=== PATIENT | female | born 1940 | race Caucasian/White ===

== ENCOUNTER 2016-06-20 08:56 | Observation (INO) | payer MEDICARE, BC ==
[~2016-06-20] VITALS: Ht 157.5 cm; Wt 96.3 kg
[~2016-06-20 08:56] MED LIST: 00186-0370-20 IH; ALEVE220 MG PO; ANTIVERT 25MG25 MG PO; APRESOLINE50 MG PO; ASPIRIN E.C. 8181 MG PO; BACTRIM DS 8001 TAB PO; BENTYL 10MG10 MG/CAP PO; CALCIFEROL50000 IU PO; CIPRO 500MG TA500 MG PO; CLARITIN 1010 MG/TAB PO; D3-55000 IU PO; DIAZEPAM5 MG PO; DIFLUCAN150 MG PO; EPA-CON500 MG PO; ESTRATEST H.S.1 TAB PO; ESTROGEN; FLAGYL500 MG PO; HYDRALAZINE50 MG PO; LEVAQUIN 5500 MG/TA1 PO; NEURONTIN100 MG/CAP PO; NEXIUM 40MG40 MG PO; NEXIUM PO; NORCO 325 MG-51 TAB PO; NORCO 325 MG-7.1 TAB PO; P MEDS; PHENERGAN 25 TA25 MG PO; PHENERGAN25 MG RC; PHENTERMINE15 MG PO; PHENTERMINE30 M1 PO; PRINZIDE 25 MG-1 TAB PO; PROMETHAZINE12.5 M5 PO; SINGULAIR 110 MG/TAB PO; SUPER EPA 1201200 MG PO; TERAZOL0.4% VG; TERCONAZOLE0.4% VG; TYLENOL 325MG325 MG PO; ULTRAM 50MG TAB50 MG PO; VALIUM 5MG T5 MG/TAB PO; VICODIN PO; VITAMIN D1000 IU PO; VITAMIN D5000 IU PO; WELLBUTRIN SR150 MG PO; [UNRECOGNIZED DRUG - MIXTURE] PO; [UNRECOGNIZED DRUG - OTHER]; [UNRECOGNIZED DRUG - OTHER] PO; [UNRECOGNIZED DRUG - OTHER] PO
[2016-06-20 09:14] LABS: BASO % 0.7 % (0.0-2.0); EOS # 0.2 (0.0-0.7); EOS % 3.9 % (0-4.0); GRAN # 2.5 (1.4-6.5); GRAN % 42.6 % (42.2-75.2); HEMATOCRIT 41.6 % (37.0-47.0); HEMOGLOBIN 14.1 g/dl (12.5-16.0); LYMPH # 2.7 (1.2-3.4); LYMPH % 45.9 % (20.0-51.0); MEAN CELL VOLUME 95 fl (80.0-100.0); MEAN CORPUSCULAR HEMOGLOBIN 32 pg (27.0-31.0); MEAN CORPUSCULAR HGB CONC 34 g/dl (33.0-37.0); MEAN PLATELET VOLUME 12.2 fl (7.4-10.4); MONO # 0.4 (0.1-0.6); MONO % 6.6 % (1.7-9.3); PLATELET COUNT 177 K/mm3 (130-400); RED BLOOD COUNT 4.39 M/mm3 (4.10-5.30); REDCELL DISTRIBUTION WIDTH-CV 12.3 % (11.5-14.5); WHITE BLOOD COUNT 5.9 K/mm3 (4.8-10.8)
[2016-06-20 09:19] LABS: INR 1.1 (0.8-3.0); PROTHROMBIN TIME 12.5 SECONDS (9.7-12.8)
[2016-06-20 09:29] LABS: ADJUSTED CALCIUM 9.7 mg/dL (8.4-10.2); ALANINE AMINOTRANSFERASE 77 U/L (9-52); ALBUMIN 3.9 gm/dL (3.5-5.0); ALKALINE PHOSPHATASE 160 U/L (50-136); ANION GAP 14 mmol/L (7-16); BILIRUBIN,TOTAL 1.2 mg/dL (0.0-1.0); BLOOD UREA NITROGEN 13 mg/dL (7-17); CALCIUM 9.6 mg/dL (8.4-10.2); CARBON DIOXIDE 22 mmol/L (22-30); CHLORIDE 105 mmol/L (98-107); CREATINE KINASE 62 U/L (30-135); GLUCOSE 216 mg/dL (74-106); LIPASE 78 U/L (23-300); POTASSIUM 3.6 mmol/L (3.4-5.0); SODIUM 141 mmol/L (137-145); TOTAL PROTEIN 6.8 gm/dL (6.4-8.2)
[2016-06-20 09:40] LABS: B-TYPE NATRIURETIC PEPTIDE 179 pg/mL (0-450)
[2016-06-20 09:48] LABS: TROPONIN-I < 0.012 ng/mL (0.000-0.034)
[2016-06-20] MEDS ORDERED: NEURONTIN300 MG/CAP PO (10:23)
[2016-06-20] MEDS ORDERED: MOBIC 7.5MG7.5 MG PO (10:25)
[2016-06-20] MEDS ORDERED: HYZAAR 25 MG-101 TAB PO (10:25)
[2016-06-20] MEDS ORDERED: MYRBETR50MG PO (10:27)
[2016-06-20 12:47] VITALS: BP 127/52; PULSE 70; TEMP 97.7
[2016-06-20 15:42] VITALS: BP 112/40; PULSE 65; TEMP 98.3
[2016-06-20 19:40] VITALS: BP 128/50; PULSE 75; TEMP 100.7
[2016-06-20 23:52] VITALS: BP 128/49; PULSE 65; TEMP 100
[2016-06-21] VITALS (8 sets, daily range): BP systolic 102–152; BP diastolic 32–69; PULSE 55–82; TEMP 98.1–99.4
[2016-06-21 07:44] LABS: ADJUSTED CALCIUM 9.7 mg/dL (8.4-10.2); ALANINE AMINOTRANSFERASE 68 U/L (9-52); ALBUMIN 3.2 gm/dL (3.5-5.0); ALKALINE PHOSPHATASE 111 U/L (50-136); ANION GAP 9 mmol/L (7-16); BILIRUBIN,TOTAL 1.1 mg/dL (0.0-1.0); BLOOD UREA NITROGEN 17 mg/dL (7-17); CALCIUM 9.1 mg/dL (8.4-10.2); CARBON DIOXIDE 24 mmol/L (22-30); CHLORIDE 105 mmol/L (98-107); CHOLESTEROL 172 mg/dL (120-200); CREATININE, serum 0.83 mg/dL (0.52-1.25); GLUCOSE 115 mg/dL (74-106); HDL CHOLESTEROL 34 mg/dL; LDL CHOLESTEROL 107 mg/dL; POTASSIUM 3.5 mmol/L (3.4-5.0); SODIUM 139 mmol/L (137-145); TOTAL PROTEIN 5.9 gm/dL (6.4-8.2); TRIGLYCERIDE 156 mg/dL
[2016-06-21 07:59] LABS: MAGNESIUM 1.5 mg/dL (1.6-2.3)
[2016-06-21 08:12] LABS: TROPONIN-I < 0.012 ng/mL (0.000-0.034)
[2016-06-21] MEDS ORDERED: APRESOLINE50 MG PO (16:31)
[2016-06-21] MEDS ORDERED: MAG-OX 400400 MG/TAB PO (18:02)
[2016-06-21 18:11] LABS: PH 5 (5-8); URINE APPEARANCE Clear; URINE BACTERIA None Seen /hpf; URINE BILIRUBIN Negative (NEGATIVE); URINE BLOOD Negative (NEGATIVE); URINE COLOR Yellow; URINE GLUCOSE Negative (NEGATIVE); URINE KETONE Negative (NEGATIVE); URINE RBC 0-2 /hpf; URINE UROBILINOGEN Negative (NEGATIVE); URINE WBC 0-2 /hpf
== END 2016-06-21 19:02 | disposition home or self-care (01) ==
LOC: COL.ER 08:56 → MEDICAL 10:02
PROVIDERS: Emergency Medicine; Internal Medicine
DX: R07.89 Other chest pain (principal); E83.42 Hypomagnesemia; I10 Essential (primary) hypertension; E78.5 Hyperlipidemia, unspecified
CPT/HCPCS: A9502; G0378; J1650; J2785; J3475; J7030

== ENCOUNTER → 2016-07-22 | Outpatient (CLI) | payer MEDICARE, BC ==
[~2016-07-22] MED LIST changes: +HYZAAR 25 MG-101 TAB PO; +MAG-OX 400400 MG/TAB PO; +MOBIC 7.5MG7.5 MG PO; +MYRBETR50MG PO; +NEURONTIN300 MG/CAP PO
== END ==
LOC: COL.RAD 09:34
DX: K76.0 Fatty (change of) liver, not elsewhere classified (principal)

== ENCOUNTER → 2017-03-18 | Outpatient (CLI) | payer MEDICARE, BC ==
[~2017-03-18] MED LIST changes: +EPIPEN 2-PAK1 MG/ML IM; +FLAGYL 250250 MG/TAB PO; +FLORASTOR250 MG PO; +INDERAL40 MG PO; +OMEGA-31 SGL PO; +PAMELOR 25MG25 MG PO; +PRAVACHOL10 MG PO; +PROBIOTIC ACID1 EAC3 PO; +PROBIOTIC-MAJOR PO; +ZOFRAN 4MG T4 MG/TAB PO
== END ==
LOC: COL.RAD 07:11
DX: I77.4 Celiac artery compression syndrome (principal); I70.0 Atherosclerosis of aorta; I70.1 Atherosclerosis of renal artery; I70.8 Atherosclerosis of other arteries; R63.4 Abnormal weight loss
CPT/HCPCS: A9585; C8902

== ENCOUNTER → 2017-05-16 | Outpatient (CLI) | payer MEDICARE, BC | LOC: MC.RAD 11:00 | DX: Z12.31 Encounter for screening mammogram for malignant neoplasm of breast (principal) ==

== ENCOUNTER → 2017-11-28 | Outpatient (CLI) | payer MEDICARE, BC | LOC: COL.RAD 13:39 | DX: M99.73 Connective tissue and disc stenosis of intervertebral foramina of lumbar region (principal); M96.1 Postlaminectomy syndrome, not elsewhere classified; M46.96 Unspecified inflammatory spondylopathy, lumbar region; Z98.890 Other specified postprocedural states ==

== ENCOUNTER → 2018-06-02 | Outpatient (CLI) | payer MEDICARE, BC ==
[2018-06-02 07:58] LABS: INR 1.2 (0.8-3.0); PROTHROMBIN TIME 13.3 SECONDS (9.7-12.8)
[2018-06-02 08:02] LABS: ALBUMIN 3.8 gm/dL (3.5-5.0); BILIRUBIN,TOTAL 0.8 mg/dL (0.0-1.0); CREATININE, serum 0.67 (0.52-1.25); TOTAL PROTEIN 6.8 gm/dL (6.4-8.2)
[2018-06-02 08:27] LABS: BILIRUBIN UNCONJUGATED 0.6 mg/dL (0.0-1.1); BILIRUBIN,DIRECT 0.1 mg/dL (0.0-0.4)
== END ==
LOC: COL.RAD 06:58
PROVIDERS: Internal Medicine Gastroenterology
DX: K76.0 Fatty (change of) liver, not elsewhere classified (principal); K44.9 Diaphragmatic hernia without obstruction or gangrene; R59.0 Localized enlarged lymph nodes; Z98.890 Other specified postprocedural states; Z90.49 Acquired absence of other specified parts of digestive tract
CPT/HCPCS: Q9967

== ENCOUNTER → 2018-06-06 | Outpatient (CLI) | payer MEDICARE, BC | LOC: COL.LAB 07:54 | DX: R74.0 Nonspecific elevation of levels of transaminase and lactic acid dehydrogenase [LDH] (principal); R74.8 Abnormal levels of other serum enzymes ==

== ENCOUNTER → 2019-04-11 | Outpatient (CLI) | payer MEDICARE, BC | LOC: MC.RAD 01-23 08:30 | DX: Z12.31 Encounter for screening mammogram for malignant neoplasm of breast (principal) ==

== ENCOUNTER → 2020-02-18 | Outpatient (CLI) | payer MEDICARE, BC | LOC: COL.RAD 13:52 | DX: R59.0 Localized enlarged lymph nodes (principal); Z90.49 Acquired absence of other specified parts of digestive tract | CPT/HCPCS: Q9967 ==

== ENCOUNTER 2020-02-28 13:46 | Emergency (ER) | payer MEDICARE, BC ==
[~2020-02-28] VITALS: Ht 157.5 cm; Wt 88.2 kg
[2020-02-28] MEDS ORDERED: ANECREAM15 TP (15:22)
[2020-02-28 15:30] VITALS: BP 134/64; PULSE 68; TEMP 98.3
== END 2020-02-28 15:40 | disposition home or self-care (01) ==
LOC: COL.ER 13:46
DX: K64.9 Unspecified hemorrhoids (principal); I10 Essential (primary) hypertension; E78.5 Hyperlipidemia, unspecified; E11.9 Type 2 diabetes mellitus without complications; K21.9 Gastro-esophageal reflux disease without esophagitis; G89.29 Other chronic pain; Z79.82 Long term (current) use of aspirin; Z79.51 Long term (current) use of inhaled steroids

== ENCOUNTER → 2020-03-24 | Outpatient (CLI) | payer MEDICARE, BC ==
[~2020-03-24] MED LIST changes: +ANECREAM15 TP
== END ==
LOC: COL.RAD 08:00
DX: K21.9 Gastro-esophageal reflux disease without esophagitis (principal)
CPT/HCPCS: A9541

== ENCOUNTER 2021-05-12 15:41 | Emergency (ER) | payer MEDICARE, BC ==
[~2021-05-12] VITALS: Ht 154.9 cm; Wt 86.4 kg
[~2021-05-12 15:41] MED LIST changes: +PERCOCET 325 MG1 TAB PO
[2021-05-12 15:51] VITALS: TEMP 99.7
[2021-05-12 16:23] LABS: BASO % 0.3 % (0.0-2.0); EOS % 0.4 % (0.0-4.0); GRAN # 9.2 K/mm3 (1.4-6.5); HEMATOCRIT 45.2 % (37.0-47.0); HEMOGLOBIN 15.7 g/dl (12.5-16.0); LYMPH # 1.4 K/mm3 (1.2-3.4); LYMPH % 11.9 % (20.0-51.0); MEAN CELL VOLUME 93 fl (80.0-100.0); MEAN CORPUSCULAR HEMOGLOBIN 32 pg (27-31); MEAN CORPUSCULAR HGB CONC 35 g/dl (33.0-37.0); MONO # 0.7 K/mm3 (0.1-0.6); MONO % 6.1 % (1.7-9.3); PLATELET COUNT 143 K/mm3 (130-400); RED BLOOD COUNT 4.87 M/mm3 (4.10-5.30); REDCELL DISTRIBUTION WIDTH-CV 12.4 % (11.5-14.5)
[2021-05-12 16:39] LABS: ALBUMIN 3.9 gm/dL (3.4-4.8); BILIRUBIN,TOTAL 1.4 mg/dL (0.2-1.2); CALCIUM 9.5 mg/dL (8.4-10.2); CREATININE, serum 0.78 mg/dL (0.57-1.11); POTASSIUM 3.7 mmol/L (3.5-4.5); TOTAL PROTEIN 7.2 gm/dL (6.2-8.1)
[2021-05-12 16:45] LABS: TROPONIN-I 0.02 ng/mL (0.00-0.033)
[2021-05-12] MEDS ORDERED: AMOXICILLIN 8751 TAB PO (18:29)
[2021-05-12] MEDS ORDERED: DOXYCYCLINE 10100 MG PO (18:29)
[2021-05-12 18:38] VITALS: BP 117/50; PULSE 73
== END 2021-05-12 18:49 | disposition home or self-care (01) ==
LOC: COL.ER 15:41
PROVIDERS: Emergency Medicine
DX: J18.9 Pneumonia, unspecified organism (principal); Z20.822 Contact with and (suspected) exposure to COVID-19
CPT/HCPCS: A9284; Q9967

== ENCOUNTER → 2022-04-01 | Outpatient (CLI) | payer MEDICARE, BC ==
[~2022-04-01] MED LIST changes: +AMOXICILLIN 8751 TAB PO; +DOXYCYCLINE 10100 MG PO; +PROBIOTIC BLEN1 EACH PO
== END ==
LOC: MHCPAIN 03-15 13:21
DX: M47.816 Spondylosis without myelopathy or radiculopathy, lumbar region (principal); M54.50 Low back pain, unspecified

== ENCOUNTER → 2022-08-04 | Outpatient (CLI) | payer MEDICARE, BC | LOC: COL.RAD 07-29 15:00 | DX: K74.60 Unspecified cirrhosis of liver (principal); K58.0 Irritable bowel syndrome with diarrhea; R16.1 Splenomegaly, not elsewhere classified; K57.90 Diverticulosis of intestine, part unspecified, without perforation or abscess without bleeding; Z90.49 Acquired absence of other specified parts of digestive tract; Z90.710 Acquired absence of both cervix and uterus | CPT/HCPCS: Q9967 ==

== ENCOUNTER → 2023-10-20 | Outpatient (CLI) | payer MEDICARE, BC ==
[~2023-10-20] MED LIST changes: +Lidocaine PF 1% (10 MG/ML) 5 ML VIAL ONE; +Triamcinolone 40 MG/ML 1 ML VIAL ONE
== END ==
LOC: MHCPAIN 11:11
DX: M54.50 Low back pain, unspecified (principal); M47.816 Spondylosis without myelopathy or radiculopathy, lumbar region; M53.3 Sacrococcygeal disorders, not elsewhere classified; Z98.1 Arthrodesis status; M25.511 Pain in right shoulder; M75.41 Impingement syndrome of right shoulder
CPT/HCPCS: G0463; J3301

== ENCOUNTER → 2023-10-27 | Outpatient (CLI) | payer MEDICARE, BC ==
[~2023-10-27] MED LIST changes: +Iohexol 300 - 10 ML VIAL ONE; -Lidocaine PF 1% (10 MG/ML) 5 ML VIAL ONE; -Triamcinolone 40 MG/ML 1 ML VIAL ONE
== END ==
LOC: MHCPAIN 09:20
DX: M46.1 Sacroiliitis, not elsewhere classified (principal); M53.3 Sacrococcygeal disorders, not elsewhere classified; M54.50 Low back pain, unspecified
CPT/HCPCS: G0260; J0665; J1010; Q9967

== ENCOUNTER → 2023-12-12 | Outpatient (CLI) | payer MEDICARE, BC ==
[~2023-12-12] MED LIST changes: +Lidocaine PF 2% (20 MG/ML) 2 ML VIAL ONE
== END ==
LOC: MHCPAIN 08:36
DX: M47.26 Other spondylosis with radiculopathy, lumbar region (principal); M96.1 Postlaminectomy syndrome, not elsewhere classified; M54.50 Low back pain, unspecified
CPT/HCPCS: J1100; Q9967